=== PATIENT | male | born 1980 | race Two or more races ===

== ENCOUNTER 2024-04-13 12:03 | Emergency (ER) | payer OTHER ==
[~2024-04-13] VITALS: Ht 182.9 cm; Wt 103.0 kg
[2024-04-13] MEDS ORDERED: METFORMIN HCL500 MG PO (12:27)
[2024-04-13] MEDS ORDERED: ACETAMINOPHEN 500 MG TAB PO ONE (15:00)
[2024-04-13] MEDS ORDERED: IBUPROFEN 600 MG TAB PO ONE (15:00)
[2024-04-13 16:30] VITALS: BP 130/95
== END 2024-04-13 16:30 | disposition home or self-care (01) ==
LOC: ED 12:03
DX: S13.9XXA Sprain of joints and ligaments of unspecified parts of neck, initial encounter (principal); V54.5XXA Driver of pick-up truck or van injured in collision with heavy transport vehicle or bus in traffic accident, initial encounter; Y92.411 Interstate highway as the place of occurrence of the external cause; E11.9 Type 2 diabetes mellitus without complications; Z79.84 Long term (current) use of oral hypoglycemic drugs
CPT/HCPCS: 72040; 99284; A9270